=== PATIENT | female | born 2000 | race American Indian/Alaskan Native ===

== ENCOUNTER 2020-07-27 08:36 | Inpatient (IN) | payer MEDICAID ==
[2020-07-27] MEDS ORDERED: LACTATED RINGERS 1000 ML IV SOLN ONE (15:30)
[2020-07-27] MEDS ORDERED: OXYTOCIN/NS 30 UNIT/500 ML DRIP IV ONE (15:30)
[2020-07-27] MEDS ORDERED: LACTATED RINGERS 1,000 ML ONE ×2 (15:33→18:06)
[2020-07-27] MEDS ORDERED: OXYTOCIN DRIP 30,000 MILLIUNITS/500 ML BAG IV ONE (15:33)
[2020-07-27] MEDS ORDERED: BUTORPHANOL 2 MG/1 ML INJ ONE (17:47)
[2020-07-27] MEDS ORDERED: fentaNYL-BUPIV 2 MCG/ML-0.125% 200 MCG/100 ML BAG EPIDURAL ONE (19:34)
[2020-07-27] MEDS ORDERED: ePHEDrine SULFATE 50 MG/1 ML INJ ONE (19:43)
[2020-07-27] MEDS ORDERED: NalbUPHINE 10 MG/1 ML INJ IV PRN (20:23)
[2020-07-27] MEDS ORDERED: ONDANSETRON 4 MG/2 ML INJ IV PRN (20:23)
[2020-07-27] MEDS ORDERED: NALOXONE 2 MG/2 ML INJ IV PRN (20:23)
[2020-07-27] MEDS ORDERED: diphenhydrAMINE 50 MG/ML VIAL IV PRN (20:23)
[2020-07-27] MEDS ORDERED: ePHEDrine SULFATE 50 MG/1 ML INJ IV PRN (20:23)
--- NOTE | 2020-07-27 20:24 | Anesthesia Consultation ---
Anesthesia Consult and Med Hx Date of service: 07/27/20 - Airway Anesthetic Teeth Evaluation: Good ROM Head & Neck: Adequate Mental/Hyoid Distance: Adequate Mallampati Class: Class II Intubation Access Assessment: Probably Good - Pulmonary Exam CTA: Yes - Cardiac Exam Cardiac Exam: RRR - Pre-Operative Health Status ASA Pre-Surgery Classification: ASA2 Proposed Anesthetic Plan: Epidural - Pulmonary Hx Smoking: No Hx Sleep Apnea: No - Cardiovascular System Hx Hypertension: No Hx Heart Attack/AMI: No - Central Nervous System Hx Neuromuscular Disorder: No - Gastrointestinal Hx Gastroesophageal Reflux Disease: No - Endocrine Hx Insulin Dependent Diabetes: No Hx Non-Insulin Dependent Diabetes: No - Other Systems Hx Alcohol Use: No
--- NOTE | 2020-07-27 20:26 | Progress Note ---
Labor Epidural - Labor Epidural Start Time: 19:35 Stop Time: 19:58 Performed by:: BRENDA MEJIA (Sofi FARMER) Procedure: Patient is requesting a laboring epidural for laboring pain. Patient IDed, H&P reviewed, all questions and concerns were answered, and consent was signed. Timeout was performed at bedside. Patient in sitting position. Sterile prep and drape was performed. 3ml of 1% lidocaine skin wheal at L[3]- L [4]. 18- gauge Touhy epidural needle was advanced to loss of resistance with air technique. Negative CSF negative blood. Epidural catheter advanced to [13] centimeters. [-] Aspiration [-] test dose. Sterile dressing applied. Patient tolerated procedure.
[2020-07-27] MEDS ORDERED: fentaNYL-BUPIV 2 MCG/ML-0.125% 200 MCG/100 ML BAG EPIDURAL SCH (21:00)
--- NOTE | 2020-07-27 21:27 | Progress Note ---
Assessment and Plan Pt resting comfortably with epidural, SO supportive at bedside. plan of care reviewed. all questions addressed. SVE 5/100%/-1 AROM clear fluid, placed LL with peanut ball, encouraged to rest, anticipate . Dr Jon updated. Subjective - Subjective Date of service: 07/27/20 (pt comfortable with epidural) Principal diagnosis: IOL d/t BPP 2/8 CAT 2 FHT's, IUP@37.1 Patient reports: no new complaints Objective - Vital Signs Vital Signs: Vital Signs - 12hr 07/27/20 19:10 Temperature 97.8 F Respiratory 18 Rate - Exam Cardiovascular: Regular rate Lungs: Normal air movement Abdomen: Present: normal appearance, soft. Absent: distention, tenderness Vulva: both: normal Uterus: Present: normal FHR: category 2 Uterine Contraction Monitor Mode: External Cervical Dilatation: 5 Cervical Effacement Percentage: 100 station: -1 Uterine Contraction Pattern: Regular Extremities: normal
[2020-07-27] MEDS ORDERED: OXYTOCIN DRIP 30 UNITS/500 ML BAG IV SCH (23:45)
[2020-07-27] MEDS ORDERED: LACTATED RINGERS 1,000 ML IV SCH (23:45)
[2020-07-28] MEDS ORDERED: MINERAL OIL 30 ML ORAL LIQD ONE (00:42)
[2020-07-28] MEDS ORDERED: miSOPROStol 200 MCG TAB ONE (00:42)
--- NOTE | 2020-07-28 04:17 | Procedure Note ---
OB Delivery Note - Delivery Date of Delivery: 07/28/20 Wine Consultant: CLAUDIA DOE (Roberto HAGEN) Estimated blood loss: 100cc - Vaginal Delivery presentation: vertex Delivery position: OA (NOBLE) Intrapartum events: decreased FHT variability, mult.variable deceleratio, other(please specify) (BPP 11/08) Delivery induction: none Delivery augmentation: rupture of membranes, pitocin Delivery monitor: external FHT, external uterine Route of delivery: Delivery placenta: spontaneous Delivery cord: 3 umbilical vessels Episiotomy: none Delivery laceration: none Delivery comments: Viable male born over intact perineum, placed skin to skin with mother, crying and vigorous, 3 vessel cord clamped and cut after cessation of pulsation. Placenta delivered spontaneously intact and complete. EBL 100mL. Apgars 8,9 wt. [id number]. All counts correct. Mother and LDR stable. Placenta sent to pathology - A at 1 minute: 8 at 5 minutes: 9 Gender: Male (6#1oz)
[2020-07-28] MEDS ORDERED: OXYTOCIN DRIP 30 UNITS/500 ML BAG IV SCH (07:10)
[2020-07-28] MEDS ORDERED: diphenhydrAMINE 25 MG CAP PO PRN (07:10)
[2020-07-28] MEDS ORDERED: PROMETHAZINE 25 MG RECT SUPP PR PRN (07:10)
[2020-07-28] MEDS ORDERED: BENZOCAINE/MENTHOL 20/0.5% TOP SPRAY 56 GM TP PRN (07:10)
[2020-07-28] MEDS ORDERED: LANOLIN/ZINC/DIMETHICONE (LANSINOH) 7 GM TP PRN (07:10)
[2020-07-28] MEDS ORDERED: PROMETHAZINE 25 MG TAB PO PRN (07:10)
[2020-07-28] MEDS ORDERED: ACETAMINOPHEN 325 MG TAB PO PRN (07:10)
[2020-07-28] MEDS ORDERED: WITCH HAZEL/ GLYCERIN PAD TP PRN (07:10)
[2020-07-28] MEDS ORDERED: ONDANSETRON 4 MG/2 ML INJ IV PRN (07:10)
--- NOTE | 2020-07-28 08:17 | Ultrasound Report ---
ULTRASOUND BIOPHYSICAL PROFILE ULTRASOUND OB LIMITED INDICATION: WELL BEING TECHNIQUE: Transabdominal ultrasound imaging. COMPARISON: None COMMENT: This examination is just presented to me for interpretation secondary to technical factors a the [facility] [address]. The work sheet was sent to the ordering physician/nurse after completing the exam yes terday. FINDINGS: breathing movement = 0 Gross body movement = 0 tone = 0 Qualitative amniotic fluid volume = 2 Total biophysical score = 2/8 Amniotic fluid index is 9.5 cm. Presentation is cephalic. heart rate is 131 beats per minute. IMPRESSION: biophysical profile equals 2/8. Signer Name: Atul Webb Jr, MD Signed: 07/28/2020 8:12 AM Workstation Name: [id number]
--- NOTE | 2020-07-28 08:17 | Ultrasound Report ---
ULTRASOUND BIOPHYSICAL PROFILE ULTRASOUND OB LIMITED INDICATION: WELL BEING TECHNIQUE: Transabdominal ultrasound imaging. COMPARISON: None COMMENT: This examination is just presented to me for interpretation secondary to technical factors a the [facility]. The work sheet was sent to the ordering physician/nurse after completing the exam yes terday. FINDINGS: breathing movement = 0 Gross body movement = 0 tone = 0 Qualitative amniotic fluid volume = 2 Total biophysical score = 2/8 Amniotic fluid index is 9.5 cm. Presentation is cephalic. heart rate is 131 beats per minute. IMPRESSION: biophysical profile equals 2/8. Signer Name: Atul Webb Jr, MD Signed: 07/28/2020 8:12 AM Workstation Name: [id number]
--- NOTE | 2020-07-28 09:02 | Post Anesthesia Evaluation ---
- Post Anesthesia Evaluation Patient Participated: Yes Airway Patent: Yes Stable Respiratory Function: Yes Nausea/Vomiting: No Temp > 96.8F: Yes Pain Manageable: Yes Adequeate Hydration: Yes Anesthesia Complications: No Block Receding Appropriately: Yes Patient on Ventilator: No
[2020-07-28] MEDS: PRENATAL VIT27-FE FUMARATE-FOLIC ACID VIT TAB PO SCH (11:40)
[2020-07-28] MEDS: IBUPROFEN 600 MG TAB PO SCH ×2 (11:40→18:33)
--- NOTE | 2020-07-28 18:34 | Progress Note ---
Assessment and Plan A: 19 y.o. s/p @ term. Doing well . P: Continue with care. Anticipate discharge home in AM. Subjective - Subjective Date of service: 07/28/20 (Pt doing well.) Principal diagnosis: s/p @ term Patient reports: appetite normal, voiding normally, pain well controlled, flatus, ambulating normally : doing well Objective - Vital Signs Latest vital signs: Vital Signs Temp Pulse Resp BP Pulse Ox 07/28/20 17:16 20 07/28/20 16:10 98.6 F 89 18 113/61 98 07/28/20 12:46 98.4 F 77 18 114/79 97 07/28/20 06:45 98.0 F 73 18 112/64 98 07/28/20 06:15 98.1 F 07/28/20 05:56 103 H 114/69 07/28/20 05:39 91 H 103/59 07/28/20 05:24 122 H 108/55 07/28/20 05:09 86 107/57 07/28/20 05:03 111/59 07/28/20 05:01 94 H 111/59 07/28/20 04:39 123/69 07/28/20 04:24 118/58 07/28/20 04:12 132/55 07/28/20 03:00 97.9 F 103/44 07/28/20 01:57 97.9 F 103/61 07/28/20 00:58 97/55 07/27/20 23:24 97.9 F 102/50 07/27/20 19:15 98 F 18 07/27/20 19:10 97.8 F 18 Intake and Output 07/28/20 07/28/20 07/28/20 06:59 14:59 22:59 Intake Total 50.733 480 240 Balance 50.733 480 240 Intake: IV 50.733 PITOCin/NS 30 UNIT/500ML 50.733 30 units In 500 ml @ 2 mls/hr IV TITR O[facility] Rx#: [id number] Oral 480 240 Other: Total, Intake Amount 240 240 # Voids Void 1 Estimated Blood Loss 100 - Exam Breasts: Present: deferred Cardiovascular: Present: Regular rate Lungs: Present: Normal air movement Abdomen: Present: normal appearance, soft Vulva: both: normal Uterus: Present: normal, firm Extremities: Present: normal Deep Tendon Reflex Grade: Normal +2
[2020-07-28 19:01] LABS: Hematocrit 28.4 % (30.3-42.9); Hemoglobin 9.5 gm/dl (10.1-14.3)
[2020-07-28] MEDS ORDERED: MAGNESIUM HYDROXIDE (MOM) ORAL LIQD UDC PO PRN (22:00)
[2020-07-29] MEDS: IBUPROFEN 600 MG TAB PO SCH ×4 (00:34→15:01)
[2020-07-29] MEDS ORDERED: DIPHtheria,PERTUSSIS(ACELL),TETANUS VACCINE/PF 0.5 ML VIAL IM ONE (04:20)
--- NOTE | 2020-07-29 06:22 | Discharge Summary ---
Providers - Providers Date of Admission: 07/28/20 04:21 Date of discharge: 07/29/20 (agrees with d/c) Attending physician: MARY SHINE Primary care physician: MARY SHINE Hospitalization Reason for admission: active labor Delivery: Episiotomy: none Laceration: none Incision: normal Other procedures: none complications: none Discharge diagnosis: IUP at term delivered baby: male Hospital course: uncomplicated vaginal delivery Pt w/o complaint VSS FF below umb lochia small perineum intact H&H 06/28 No s/sx of anemia. Doing well s/p vag delivery. P: d/c today with instructions RTO 1 week son's circ Condition at discharge: Good Disposition: DC-01 TO HOME OR SELFCARE - Discharge Diagnoses (1) Spontaneous vaginal delivery Status: Acute Comment: RTO 4 weeks PP care Plan - Provider Discharge Summary Activity: routine, no sex for 6 weeks, no heavy lifting 4 weeks, no strenuous exercise Diet: routine Instructions: routine Additional instructions: [] Smoking cessation referral if applicable(refer to patient education folder for contact #) [] Refer to [facility] Booklet Call your doctor immediately for: * Fever > 100.5 * Heavy vaginal bleeding ( >1 pad per hour) * Severe persistent headache * Shortness of breath * Reddened, hot, painful area to leg or breast * Drainage or odor from incision. * Keep incision clean and dry at all times and follow doctor's instructions regarding bathing/showering - Follow up plan Follow up: MARY SHINE MD [Primary Care Provider] - 7 Days (Congratulations! Please call [phone] to schedule your postoartum visit in 4 weeks and your son's circumcision in one week. Bring the EMLA cream with you to his visit. Do NOT use at home. Take medications as prescribed. Call with concerns.)
[2020-07-29] MEDS: PRENATAL VIT27-FE FUMARATE-FOLIC ACID VIT TAB PO SCH (10:14)
[2020-07-29 15:53] VITALS: BP 124/70
== END 2020-07-29 16:00 | disposition home or self-care (01) | DRG 775 ==
LOC: LD 08:36 → TRG 08:36 → LD 07-28 04:21 → OB 07-28 06:44
PROVIDERS: ADMIT Obstetrics & Gynecology; ATTEND Obstetrics & Gynecology
PROC: 10E0XZZ Delivery of Products of Conception, External Approach (ICD-10-PCS; principal; 2020-07-28)
PROC: 10907ZC Drainage of Amniotic Fluid, Therapeutic from Products of Conception, Via Natural or Artificial Opening (ICD-10-PCS; 2020-07-28)
PROC: 3E0234Z Introduction of Serum, Toxoid and Vaccine into Muscle, Percutaneous Approach (ICD-10-PCS; 2020-07-29)
PROC: 3E0234Z Introduction of Serum, Toxoid and Vaccine into Muscle, Percutaneous Approach (ICD-10-PCS; 2020-07-29)
DX: O76 Abnormality in fetal heart rate and rhythm complicating labor and delivery (principal); Z20.828 Contact with and (suspected) exposure to other viral communicable diseases; Z37.0 Single live birth; Z3A.37 37 weeks gestation of pregnancy; Z23 Encounter for immunization
CPT/HCPCS: 36415; 76815; 76819; 85014; 85018; 85461; 86592; 86850; 86900; 86901; 88307; 90471; 90715; G0378; J2590; J2790; J7120; U0003